=== PATIENT | female | born 1955 | race Asian ===

== ENCOUNTER 2025-04-04 09:52 | Emergency (ER) | payer MEDICARE, OTHER, SELFPAY ==
[2025-04-04 09:53] VITALS: BP 201/124
--- NOTE | 2025-04-04 10:27 | ED.GENMED ---
History of Present Illness
General
Chief Complaint: Blood Pressure Problem
Source: patient
Exam Limitations: none
Time Seen by Provider: 04/04/25 10:21
Nursing documentation reviewed up to this point in time: agreed with
History of Present Illness
History of Present Illness:
70-year-old female presents emergency room complaining of lightheadedness that began this morning when she woke up. She felt lightheaded checked her blood pressure and it was high, so she came to the emergency department. She feels slightly
lightheaded this time. She did take her losartan and amlodipine. She denies chest pain.
Past History
Past History
ED Past Medical History: HTN
ED Past Surgical History: Gynecological (Tubal ligation, tubal reversal), Orthopedic (Knee surgery) and Other (Cataract)
Social History
Tobacco: Non-smoker
Alcohol: None
Drug: None
Living: with family
Family History
Family History: Negative Diabetes, Hypertension or CAD
Review of Systems
Review of Systems
Allergies reviewed?: Yes
All Other Systems: Not applicable
Constitutional: Reports no symptoms
EENT: Reports no symptoms
Respiratory: Reports no symptoms
Cardiac: Reports no symptoms; Denies chest pain
ABD/GI: Reports no symptoms
: Reports no symptoms
Musculoskeletal: Reports no symptoms
Skin: Reports no symptoms
Neurological: Reports other (Lightheaded)
Endocrine: Reports no symptoms
Hematologic/Lymphatic: Reports no symptoms
Psychiatric: Reports no symptoms
Phy Exam
Physical Exam
Physical Exam:
Physical Exam
General: no apparent distress, not acutely ill
Neck: supple. no meningeal signs. normal posterior pharynx
Heart: s1/s2 regular rate and rhythm, no murmur. equal radial
pulses.
HEENT: Pupils equal round reactive to light, EOMI
Lungs: no acute respiratory distress. clear bilaterally
Abdomen: normal bowel sounds. not tender. no CVAT
Neuro: alert and oriented. no focal neurological deficits cranial nerves II through XII intact
Skin: no rash
Psychiatric: well kept. interactive and cooperative
Extremities: no edema. no calf tenderness. negative homans. good distal pulses
Course
Orders/Labs/Results
Orders:
Orders
04/04/25 09:56
Electrocardiogram (*1) Urgent
Reason for Study: Chest Pain
EKG- Treatment ONCE
04/04/25 10:27
IV Insert/Care/Rem.- Treatment PRN
04/04/25 10:33
Complete Blood Count/With Diff Urgent
Comprehensive Metabolic Panel Urgent
Abnormal Lab Results
04/04/25
10:33
Abs Immat Gran (auto) 0.1 H 10^3/uL
(0-0.05)
Immature Gran % 0.8 H %
(0-0.5)
Glucose 113 H mg/dl
(70-99)
04/04/25 10:33
04/04/25 10:33
Vital Signs
Initial and Last Documented VS:
Initial Vital Signs
Temp Pulse Resp BP Pulse Ox
98.3 F 104 18 201/124 99
04/04/25 09:53 04/04/25 09:53 04/04/25 09:53 04/04/25 09:53 04/04/25 09:53
Last Documented Vital Signs
Temp Pulse Resp BP Pulse Ox
98.3 F 104 17 160/70 98
04/04/25 09:53 04/04/25 09:53 04/04/25 10:46 04/04/25 12:03 04/04/25 10:46
MDM/Problems Addressed
Differential Diagnosis Includes:
Dysrhythmia, hypertensive urgency
MDM/Problems Addressed:
70-year-old female with elevated blood pressure transiently. Lightheadedness clear etiology vital signs stable, blood pressure improved with observation. Stable for discharge. Return precautions given.
Chronic conditions affecting care: HTN
Acute Exacerbation and/or Progression of Chronic Illness: HTN
*Pulse Oximetry
SaO2: 99
Oxygen Mode of Delivery: Room air
Patient hypoxic: no
*Critical Care Note
Total Time (30-74mins, 75-104mins- exclusive of procedures): Not Applicable
Patient Management
Social determinants of health affecting care: Living situation and Strong social support
Escalation/DeEscalation of care consider admission/obs:
admit not indicated
ED Attending Note
-
Portions of this chart may have been created with voice recognition software.� Occasional wrong word or��sound alike� substitutions may have occurred due to the inherent limitations of voice recognition software.
Discharge Plan
Departure
Patient Disposition: Home (Routine Discharge)
Date of Disposition: 04/04/25
Time of Disposition: 12:41
Patient with high blood pressure during this ER visit?: Yes
Condition: Good
Discharge Problem:
Hypertensive urgency
Instructions: High Blood Pressure (DC), Dizziness in adults - ED discharge instructions, BLOOD PRESSURE
Prescriptions:
No Action
ondansetron HCl 4 MG tablet
4 mg PO Q8HPRN PRN (Reason: nausea and vomiting) Qty: 10 0RF
Referrals:
Tong Campos DO [Family Provider, Family Practice]
Interventions
Interventions:
*Risk Screen - Suicide Last Done: 04/04/25 09:53
*Neglect/Abuse Screening Last Done: 04/04/25 09:53
ED- Cardiac Assessment Last Done: 04/04/25 11:39
ED- Neurological Assessment Last Done: 04/04/25 11:39
ED- Pulmonary Assessment Last Done: 04/04/25 11:39
Discharge Date and Time
Print Language: MONGOLIAN
[2025-04-04 10:44] LABS: % Basophils 1.4 % (0-2); % Eosinophils 3.5 % (0-6); % Immature Granulocytes 0.8 % (0-0.5); % Lymphocytes 33.1 % (20.5-51.1); % Monocytes 9.2 % (1.7-9.3); Absolute Basophils 0.1 10^3/uL (0-0.2); Absolute Eosinophils 0.2 10^3/uL (0-0.7); Absolute Immature Granulocytes 0.1 10^3/uL (0-0.05); Absolute Lymphocytes 2.2 10^3/uL (1.2-3.4); Absolute Monocytes 0.6 10^3/uL (0.1-0.6); Absolute Neutrophils 3.5 10^3/uL (1.4-6.5); Hematocrit 42.5 % (37.0-47.0); Hemoglobin 14.3 g/dL (12.0-16.0); Mean Corp Hgb Conc. 33.6 g/dL (33.0-37.0); Mean Corpuscular Hgb 28.7 pg (27.0-31.0); Mean Corpuscular Volume 85.2 fL (81.0-99.0); Mean Platelet Volume 9.4 fL (7.4-10.4); Nucleated Red Blood Cells % 0 %; Platelet Count 232 10^3/uL (130-400); Red Blood Cell Count 4.99 10^6/uL (4.20-5.40); Red Cell Dist. Width 13.3 % (11.5-14.5); White Blood Cell Count 6.6 10^3/uL (4.8-10.8)
[2025-04-04 10:46] VITALS: BP 170/80
[2025-04-04 10:57] LABS: ALT (SGPT) 22 U/L (0-35); AST (SGOT) 28 U/L (14-36); Albumin 4.5 g/dl (3.5-5.0); Alkaline Phosphatase 109 U/L (38-126); Blood Urea Nitrogen 11 mg/dl (7-17); Carbon Dioxide 27 mmol/L (22-30); Chloride 104 mmol/L (98-107); Glucose 113 mg/dl (70-99); Potassium 3.9 mmol/L (3.5-5.1); Sodium 140 mmol/L (135-145); Total Bilirubin 0.6 mg/dl (0.2-1.3); Total Protein 7.5 g/dl (6.3-8.2); eGFR > 60.00
[2025-04-04 12:03] VITALS: BP 160/70
[2025-04-04 12:59] VITALS: BP 148/65
== END 2025-04-04 13:01 | disposition home or self-care (01) ==
LOC: EMR 09:52
PROVIDERS: EMERGENCY PHYSICIAN Emergency Medicine; FAMILY PHYSICIAN Family Medicine
DX: I16.0 Hypertensive urgency (principal)
CPT/HCPCS: 99284; 80053; 85025; 93005